=== PATIENT | female | born 1985 | race Caucasian/White ===

== ENCOUNTER 2016-09-14 21:44 | Emergency (ER) | payer OTHER ==
[~2016-09-14] VITALS: Ht 167.6 cm; Wt 60.3 kg
[2016-09-14] MEDS ORDERED: NAPROSYN500 MG PO (23:40)
== END 2016-09-14 23:58 | disposition home or self-care (01) ==
LOC: ED 21:44
DX: M25.512 Pain in left shoulder (principal); F17.200 Nicotine dependence, unspecified, uncomplicated